=== PATIENT | female | born 1970 | race Caucasian/White ===

== ENCOUNTER 2018-03-05 20:10 | Inpatient (IN) | payer MEDICAID ==
[~2018-03-05] VITALS: Ht 152.4 cm; Wt 110.2 kg
[2018-03-05 20:18] VITALS: Ht 152.4 cm; Wt 110.2 kg
[2018-03-05 21:14] LABS: PLATELET COUNT 329 x10^3mcL (130-400); RED CELL DISTRIBUTION WIDTH 14.2 % (11.5-14.5)
[2018-03-05 21:21] LABS: CALCIUM 8.1 mg/dL (8.5-10.1); CARBON DIOXIDE 23.9 mmol/L (21-32); CHLORIDE SERUM 101 mmol/L (98-107); GFR1 > 60 mL/min; GLUCOSE SERUM 169 mg/dL (74-106); POTASSIUM SERUM 3.8 mmol/L (3.5-5.1); SODIUM SERUM 135 mmol/L (136-145)
[2018-03-05 21:25] LABS: ALKALINE PHOSPHATASE 150 U/L (46-116); ALT/SGPT 45 U/L (14-59); AST/SGOT 39 U/L (15-37); BILIRUBIN TOTAL 0.3 mg/dL (0.20-1.00); LIPASE 62 IU/L (73-393); TOTAL PROTEIN, SERUM 7.2 g/dL (6.4-8.2)
[2018-03-05 22:09] LABS: ATYPICAL LYMPH 6 %; BAND NEUTROPHIL 3 % (0-10); BASOPHIL 0 % (0-2); MONOCYTE 9 % (0-7); PLATELET MORPHOLOGY PLATELETS NORMAL; SEGMENTED NEUTROPHILS 36 % (37-75); rbc morphology (normal/abnorm) NORMAL (NORMAL)
[2018-03-05 23:05] LABS: microscopic required? NO
[2018-03-05 23:24] LABS: UA SPECIFIC GRAVITY >=1.030 (1.005-1.035); urine erythrocyte NEGATIVE (NEGATIVE)
[2018-03-06] VITALS (7 sets, daily range): BP systolic 106–152; BP diastolic 46–69
[2018-03-06] MEDS ORDERED: METFORMIN HCL500 MG PO (01:55)
[2018-03-06] MEDS ORDERED: GOOD SENSE ASP325 MG PO (01:55)
[2018-03-06] MEDS ORDERED: CYCLOBENZAPRINE10 MG PO (01:56)
[2018-03-06] MEDS ORDERED: SIMVASTATIN10 M1 PO (01:56)
[2018-03-06] MEDS ORDERED: CIPRO500 MG PO (01:56)
[2018-03-06] MEDS ORDERED: IMITREX100 MG PO (01:57)
[2018-03-06] MEDS ORDERED: GOOD SENSE ASPI81 M3 PO (02:19)
[2018-03-06 03:12] LABS: T3 TOTAL 1.32 ng/mL
[2018-03-06 03:24] LABS: FREE T4 1.15 ng/dL (0.76-1.46); FREE THYROXINE INDEX 3.4 ug/dL (1.4-4.5); T4(THYROXINE) 11.4 ug/dL (4.7-13.3)
[2018-03-06 04:39] LABS: MAGNESIUM 1.8 mg/dL (1.8-2.4); PHOSPHOROUS 3.6 mg/dL (2.5-4.9)
[2018-03-06 04:40] LABS: CHOLESTEROL/HDL RATIO 5.2
[2018-03-06 05:43] LABS: AMPHETAMINE QUAL UR NONE DETECTED (See below)
[2018-03-07 05:18] VITALS: BP 130/67
[2018-03-07 06:48] LABS: BASOPHIL % 0.2 % (0-2); PLATELET COUNT 367 x10^3mcL (130-400); RED CELL DISTRIBUTION WIDTH 13.7 % (11.5-14.5)
[2018-03-07 06:55] LABS: CALCIUM 8.3 mg/dL (8.5-10.1); CARBON DIOXIDE 24.8 mmol/L (21-32); CHLORIDE SERUM 106 mmol/L (98-107); CREATININE SERUM 0.8 mg/dL (0.6-1.0); GFR1 > 60 mL/min; GLUCOSE SERUM 177 mg/dL (74-106); PHOSPHOROUS 3.6 mg/dL (2.5-4.9); POTASSIUM SERUM 4.5 mmol/L (3.5-5.1); SODIUM SERUM 141 mmol/L (136-145)
[2018-03-07] MEDS ORDERED: MEDDP PO (09:23)
[2018-03-07 09:24] VITALS: BP 106/68
[2018-03-07] MEDS ORDERED: LAC PO (15:25)
[2018-03-07] MEDS ORDERED: LEVAQUIN750 MG PO (15:25)
[2018-03-07] MEDS ORDERED: VENTOLIN H0.09 MG/A1 INH (15:28)
[2018-03-07 17:48] VITALS: BP 106/68
== END 2018-03-07 18:50 | disposition home or self-care (01) | DRG 133 ==
LOC: ED 20:10 → DU 03-06 01:36 → MU 03-07 10:05
PROVIDERS: Emergency Medicine; Family Medicine; Family Medicine Sports Medicine
DX: J96.01 Acute respiratory failure with hypoxia (principal); D68.9 Coagulation defect, unspecified; E44.0 Moderate protein-calorie malnutrition; E11.65 Type 2 diabetes mellitus with hyperglycemia; I50.9 Heart failure, unspecified; E87.1 Hypo-osmolality and hyponatremia; J45.901 Unspecified asthma with (acute) exacerbation; J44.9 Chronic obstructive pulmonary disease, unspecified; Z68.42 Body mass index [BMI] 45.0-49.9, adult; M19.90 Unspecified osteoarthritis, unspecified site; G43.909 Migraine, unspecified, not intractable, without status migrainosus; E66.01 Morbid (severe) obesity due to excess calories; Z53.29 Procedure and treatment not carried out because of patient's decision for other reasons; Z90.49 Acquired absence of other specified parts of digestive tract; E78.5 Hyperlipidemia, unspecified; K76.89 Other specified diseases of liver
CPT/HCPCS: 36600; 82962; 83880; 84439; 94150; J1940; J1956; J2920; J2930; J7030; J7512; J7613; J7620; J7644; Q0092; Q9967

== ENCOUNTER 2018-10-06 18:25 | Inpatient (IN) | payer MEDICAID ==
[~2018-10-06] VITALS: Ht 152.4 cm; Wt 107.2 kg
[~2018-10-06 18:25] MED LIST: CIPRO500 MG PO; CYCLOBENZAPRINE10 MG PO; GOOD SENSE ASP325 MG PO; GOOD SENSE ASPI81 M3 PO; IMITREX100 MG PO; LAC PO; LEVAQUIN750 MG PO; MEDDP PO; METFORMIN HCL500 MG PO; SIMVASTATIN10 M1 PO; VENTOLIN H0.09 MG/A1 INH
[2018-10-06 18:33] VITALS: Ht 152.4 cm; Wt 107.2 kg
[2018-10-06 19:30] LABS: BASOPHIL % 0.8 % (0-2); PLATELET COUNT 365 x10^3mcL (130-400); RED CELL DISTRIBUTION WIDTH 13.6 % (11.5-14.5)
[2018-10-06 19:35] LABS: CALCIUM 8.9 mg/dL (8.5-10.1); CARBON DIOXIDE 29.2 mmol/L (21-32); CHLORIDE SERUM 103 mmol/L (98-107); CREATININE SERUM 0.8 mg/dL (0.6-1.0); GFR1 > 60 mL/min; GLUCOSE SERUM 185 mg/dL (74-106); POTASSIUM SERUM 3.9 mmol/L (3.5-5.1); SODIUM SERUM 139 mmol/L (136-145)
[2018-10-06 19:40] LABS: ALBUMIN 3.4 g/dL (3.4-5.0); ALKALINE PHOSPHATASE 124 U/L (46-116); ALT/SGPT 39 U/L (14-59); AST/SGOT 31 U/L (15-37); BILIRUBIN TOTAL 0.1 mg/dL (0.20-1.00); TOTAL PROTEIN, SERUM 7.6 g/dL (6.4-8.2)
[2018-10-06 21:24] LABS: microscopic required? NO
[2018-10-06 21:33] LABS: urine erythrocyte NEGATIVE (NEGATIVE)
[2018-10-06 21:44] LABS: AMPHETAMINE QUAL UR NONE DETECTED (See below)
[2018-10-06 21:58] LABS: MAGNESIUM 1.9 mg/dL (1.8-2.4); PHOSPHOROUS 3.6 mg/dL (2.5-4.9)
[2018-10-06 22:05] LABS: T3 TOTAL 1.18 ng/mL
[2018-10-06 22:06] LABS: FREE T4 0.93 ng/dL (0.76-1.46); FREE THYROXINE INDEX 2.9 ug/dL (1.4-4.5); T4(THYROXINE) 9.1 ug/dL (4.7-13.3)
[2018-10-07] VITALS (7 sets, daily range): BP systolic 99–124; BP diastolic 43–64
[2018-10-07 06:28] LABS: CALCIUM 8.5 mg/dL (8.5-10.1); CARBON DIOXIDE 25.4 mmol/L (21-32); CHLORIDE SERUM 106 mmol/L (98-107); CREATININE SERUM 0.7 mg/dL (0.6-1.0); GFR1 > 60 mL/min; GLUCOSE SERUM 114 mg/dL (74-106); POTASSIUM SERUM 3.7 mmol/L (3.5-5.1); SODIUM SERUM 139 mmol/L (136-145)
[2018-10-07 06:47] LABS: BASOPHIL % 0.4 % (0-2); PLATELET COUNT 353 x10^3mcL (130-400); RED CELL DISTRIBUTION WIDTH 13.4 % (11.5-14.5)
[2018-10-07] MEDS ORDERED: AUGMENTIN 875-1 EACH PO (14:53)
[2018-10-07] MEDS ORDERED: MUCINEX600 MG PO (14:53)
== END 2018-10-07 16:33 | disposition home or self-care (01) | DRG 113 ==
LOC: ED 18:25 → DU 21:15
PROVIDERS: Emergency Medicine; ADMIT Internal Medicine
DX: J06.9 Acute upper respiratory infection, unspecified (principal); E11.65 Type 2 diabetes mellitus with hyperglycemia; I50.9 Heart failure, unspecified; E44.1 Mild protein-calorie malnutrition; Z68.42 Body mass index [BMI] 45.0-49.9, adult; E66.01 Morbid (severe) obesity due to excess calories; J01.90 Acute sinusitis, unspecified; K44.9 Diaphragmatic hernia without obstruction or gangrene; M19.90 Unspecified osteoarthritis, unspecified site; E78.5 Hyperlipidemia, unspecified; Z79.84 Long term (current) use of oral hypoglycemic drugs; Z79.82 Long term (current) use of aspirin; Z87.11 Personal history of peptic ulcer disease
CPT/HCPCS: 82962; 83880; 84439; 85378; 87804; J1200; J2270; J3490; J7620; Q0092

== ENCOUNTER 2018-10-21 18:43 | Emergency (ER) | payer MEDICAID ==
[~2018-10-21] VITALS: Ht 157.5 cm; Wt 105.7 kg
[~2018-10-21 18:43] MED LIST changes: +AUGMENTIN 875-1 EACH PO; +MUCINEX600 MG PO
[2018-10-21 18:56] VITALS: Ht 157.5 cm; Wt 105.7 kg
[2018-10-21 22:00] VITALS: BP 141/58
== END 2018-10-21 22:00 | disposition home or self-care (01) ==
LOC: ED 18:43
DX: S20.212A Contusion of left front wall of thorax, initial encounter (principal); I50.9 Heart failure, unspecified; E11.9 Type 2 diabetes mellitus without complications; G43.909 Migraine, unspecified, not intractable, without status migrainosus; M19.90 Unspecified osteoarthritis, unspecified site; W01.198A Fall on same level from slipping, tripping and stumbling with subsequent striking against other object, initial encounter; Y93.E1 Activity, personal bathing and showering; Y92.091 Bathroom in other non-institutional residence as the place of occurrence of the external cause; Y99.8 Other external cause status

== ENCOUNTER 2018-10-28 13:53 | Emergency (ER) | payer MEDICAID ==
[~2018-10-28] VITALS: Ht 152.4 cm; Wt 106.1 kg
[2018-10-28 14:22] VITALS: BP 120/66; Ht 152.4 cm; Wt 106.1 kg
== END 2018-10-28 15:18 | disposition home or self-care (01) ==
LOC: ED 13:53
DX: S20.212A Contusion of left front wall of thorax, initial encounter (principal); I50.9 Heart failure, unspecified; E11.9 Type 2 diabetes mellitus without complications; G43.909 Migraine, unspecified, not intractable, without status migrainosus; M19.90 Unspecified osteoarthritis, unspecified site; W18.09XA Striking against other object with subsequent fall, initial encounter; Y93.89 Activity, other specified; Y92.091 Bathroom in other non-institutional residence as the place of occurrence of the external cause; Y99.8 Other external cause status